=== PATIENT | male | born 1955 | race Caucasian/White ===

== ENCOUNTER 2016-11-20 08:04 | Inpatient (IN) | payer BC, OTHER ==
[2016-09-25 13:36] VITALS: BMI 29.0
[2016-09-25 13:54] VITALS: BMI 29.0
--- NOTE | 2016-09-25 14:14 | PAT Medication Instructions ---
Service Date Sep 25, 2016. Current Home Medication List Brggsotdzrd-Tosxmfsowpz-Qvr C- (Glucosamine Chondroitin), 1 TAB PO Q2D Krill Oil (Krill Oil), 1 CAP PO QAM Multivitamin (Multivitamin), 1 TAB PO QAM Medication Instructions For Your Scheduled Surgery - Hold the following medications 2 weeks prior to surgery: Oyczrzpgfkk-Ylatypdjrtc-Umj C- (Glucosamine Chondroitin), 1 TAB PO Q2D Krill Oil (Krill Oil), 1 CAP PO QAM - Hold the following medications the morning of surgery: Multivitamin (Multivitamin), 1 TAB PO QAM If you have any questions please call us at [phone] (Maryuri Lorenzana PA-C) or [phone] or [phone]
--- NOTE | 2016-09-25 14:48 | DIAGNOSTIC IMAGING REPORT ---
CHEST 2 VIEWS ROUTINE CLINICAL HISTORY: Preoperative evaluation COMPARISON STUDY: No previous studies for comparison. FINDINGS: Lung volumes are normal. Lungs are clear. There is no pneumothorax or pleural effusion. Cardiac size is normal. Mediastinal contours are normal. There is no evidence of pulmonary edema. IMPRESSION: No acute cardiopulmonary findings. Electronically signed by: Harmeet Martines M.D. 09/25/2016 2:47 PM
[2016-09-25 15:04] LABS: BASO % 0.2 %; BASO ABS # 0.02 K/uL (0-0.2); COMPLETE YES; EOS % 1.4 %; HEMATOCRIT 39.8 % (42-52); IG% 0.1 %; LYMPH % 26.7 %; LYMPH ABS # 2.43 K/uL (1.2-3.4); MEAN CELL VOLUME 89.6 fL (80-100); MEAN CORPUSCULAR HEMOGLOBIN 32.2 pg (25-34); MEAN CORPUSCULAR HGB CONC 35.9 g/dl (32-36); MEAN PLATELET VOLUME 10.8 fL (7.4-10.4); MONO % 8.6 %; PLATELET COUNT 169 K/uL (130-400); RED BLOOD COUNT 4.44 M/uL (4.7-6.1); WHITE BLOOD COUNT 9.11 K/uL (4.8-10.8)
[2016-09-25 15:08] LABS: URINE APPEARANCE CLEAR (CLEAR); URINE BILIRUBIN NEG (NEG); URINE COLOR YELLOW; URINE EPITHELIAL CELL AUTO 0-5 /lpf (0-5); URINE NITRITE NEG (NEG); URINE SPECIFIC GRAVITY 1.016 (1.000-1.030); UROBILINOGEN NEG (NEG); ZZUR CULT IF INDIC CLEAN CATCH NO
[2016-09-25 15:09] LABS: MANUAL MICROSCOPIC REQUIRED? NO; REVIEW REQ? NO
[2016-09-25 15:13] LABS: PROTHROMBIN TIME (PATIENT) 11.1 SECONDS (9.0-12.0)
[2016-09-25 15:21] LABS: BUN/CREATININE RATIO 9.9 (10-20)
[2016-09-25 15:32] LABS: CALCIUM 9.2 mg/dl (8.5-10.1)
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
[2016-11-20] VITALS (9 sets, daily range): BP systolic 113–163; BP diastolic 55–97; PULSE 57–79; TEMP 36.2–36.9; O2SAT 92–98; Ht 175.3 cm; Wt 88.0 kg
[~2016-11-20] VITALS: Ht 175.3 cm; Wt 88.0 kg
[~2016-11-20 08:04] MED LIST: ACETAMINOPHEN 500 MG TAB PO SCH; BUPIVACAINE 0.25% 30 ML VIAL ONE; BUPIVACAINE 0.5 % 5 MG/1 ML PF 10ML VIAL ONE; CEFAZOLIN 2000 MG/60 ML D5W 60 ML IV SCH; CLINDAMYCIN 600 MG/54 ML D5W IV SCH; CeleBREX 200 MG CAP PO SCH; DEXAMETHASONE 4 MG TAB PO SCH; FAMOTIDINE 20 MG TAB PO SCH; GABAPENTIN 300 MG CAP PO SCH; GLUCTAB7 PO; KRIL1CAP3 PO; LACTATED RINGER'S 1000ML 1,000 ML IV SCH; LACTATED RINGER'S 1000ML 500 ML IV ONE; LACTATED RINGER'S 1000ML IV SCH; METOCLOPRAMIDE HCL 10 MG TAB PO SCH; MULT-506 PO; OXYCODONE HCL 10 MG TABCR (OXYCONTIN) PO SCH; POLYMYXIN B SULFATE 100,000 UNITS in NSS 100ML IR SCH; ROPIVACAINE 5MG/ML 30 ML 150 MG, BUPIVACAINE/EPINEPHR 0.5% MPF 30 ML, KETOROLAC TROMETH... INFIL SCH; VANCOMYCIN INJ 400 MG in NSS 100ML IR SCH
--- NOTE | 2016-11-20 09:16 | History & Physical Bridge Note ---
H&P Re-Evaluation Bridge Note: I have examined the patient, reviewed the History & Physical and in the interval since the performance of the History & Physical I have noted the following changes of clinical significance: No changes noted
[2016-11-20] MEDS ORDERED: PROPOFOL IV EMULSION 10 MG/ML 20 ML VIAL IV ONE ×3 (09:37→13:30)
[2016-11-20] MEDS ORDERED: MIDAZOLAM HCL 1 MG/ML 2ML VIAL ONE ×3 (09:37→13:25)
[2016-11-20] MEDS: TRANEXAMIC ACID INJ 1,000 MG in SODIUM CHLORIDE 0.9% 100ML 100 ML IV SCH ×2 (11:07→16:15)
[2016-11-20] MEDS ORDERED: ORTHO JOINT ANESTHETIC ONE (11:11)
[2016-11-20] MEDS ORDERED: POVIDONE-IODINE OP SOLN 30 ML BTL ONE (11:12)
[2016-11-20] MEDS ORDERED: BUPIVACAINE/EPINEPHRINE 0.25% 1:200,000 30 ML VIAL ONE (11:13)
[2016-11-20] MEDS ORDERED: ONDANSETRON INJ 2 MG/ML 2 ML VIAL IV PRN ×2 (11:45→13:30)
[2016-11-20] MEDS ORDERED: ATROPINE SULFATE 0.1 MG/ML 5ML SYR IV PRN (11:45)
[2016-11-20] MEDS ORDERED: EpHEDrine SULFATE INJ 50 MG/ML AMP IV PRN (11:45)
[2016-11-20] MEDS ORDERED: PHENYLEPHRINE 100MCG/ML 5ML SYR IV PRN (11:45)
[2016-11-20] MEDS ORDERED: HYDROmorphone INJ 2 MG/ML SYR/VIAL IV PRN (11:45)
[2016-11-20] MEDS ORDERED: LABETALOL HCL IV 5 MG/ML 20ML ONE (12:24)
--- NOTE | 2016-11-20 13:27 | [facility] Post Operative Brief Note ---
Immediate Operative Summary Operative Date Nov 20, 2016. Pre-Operative Diagnosis Degenerative joint disease, right knee Post-Operative Diagnosis Degenerative joint disease, right knee Procedure(s) Performed Right Total Knee Arthroplasty Surgeon Dr. Shane Kennedy Director Of [employer] Surgeon(s) Hanna Freitas PA-C Estimated Blood Loss 75 Findings SEVERE SCARRING POST TRAUMATIC DJD Complication(s) None Disposition Recovery Room / PACU
[2016-11-20] MEDS ORDERED: ZOLPIDEM TARTRATE 5 MG TAB PO PRN (13:30)
[2016-11-20] MEDS ORDERED: DiphenhydrAMINE HCL 50 MG/ML VIAL IV PRN (13:30)
[2016-11-20] MEDS ORDERED: BISACODYL 10 MG SUPP PR PRN (13:30)
[2016-11-20] MEDS ORDERED: SOD PHOSPHATE/SOD BIPHOSPHATE ENEMA 132 ML BTL PR PRN (13:30)
[2016-11-20] MEDS ORDERED: METOCLOPRAMIDE HCL INJ 5 MG/ML 2 ML VIAL IV PRN (13:30)
[2016-11-20] MEDS ORDERED: TRAMADOL HCL 50 MG TAB PO PRN (13:30)
--- NOTE | 2016-11-20 14:30 | Anesthesiology Progress Note ---
Anesthesia Post Op Note Date & Time Nov 20, 2016 at 14:30 Vital Signs Pain Intensity: 0 Vital Signs Past 12 Hours Date Time Temp Pulse Resp B/P Pulse Ox O2 Delivery O2 Flow Rate FiO2 11/20/16 13:58 36.0 70 15 104/78 98 Mask 10 11/20/16 08:39 36.4 64 20 163/97 96 Room Air Notes Mental Status: alert / awake / arousable, participated in evaluation Pt Amnestic to Procedure: Yes Nausea / Vomiting: adequately controlled Pain: adequately controlled Airway Patency, RR, SpO2: stable & adequate BP & HR: stable & adequate Hydration State: stable & adequate Anesthetic Complications: no major complications apparent
--- NOTE | 2016-11-20 14:31 | DIAGNOSTIC IMAGING REPORT ---
RIGHT KNEE 1 OR 2 VIEWS ROUTINE CLINICAL HISTORY: Postoperative evaluation. COMPARISON: None FINDINGS: Alignment of the total right knee arthroplasty is anatomic. There is no fracture or unexpected radiopaque foreign body. Drains and skin brian are present. Cortical thickening within the mid shaft of the right femur is partially imaged on this exam and is chronic. There is extensive vascular calcification. IMPRESSION: Expected findings following total right knee arthroplasty. Electronically signed by: Harmeet Martines M.D. 11/20/2016 2:30 PM Dictated Date/Time: 11/20/2016 2:29 PM
[2016-11-20] MEDS: OXYCODONE HCL IR 5 MG TAB (IMMEDIATE RELEASE) PO PRN ×3 (15:36→23:53)
[2016-11-20] MEDS: MoRPHine SULFATE 2 MG/ML CARP IV PRN ×2 (16:54→22:46)
[2016-11-20] MEDS: D5W AND 1/2NSS + 20MEQ KCL 1,000 ML IV SCH (17:16)
[2016-11-20] MEDS ORDERED: TRANEXAMIC ACID INJ 1,000 MG in SODIUM CHLORIDE 0.9% 100ML 100 ML IV SCH (20:00)
[2016-11-20] MEDS: CEFAZOLIN IV 2,000 MG in DEXTROSE 5% 50ML 50 ML IV SCH (20:43)
[2016-11-20] MEDS: OXYCODONE HCL 10 MG TABCR (OXYCONTIN) PO SCH (20:44)
[2016-11-20] MEDS: ASPIRIN 81 MG ECTAB PO SCH (20:44)
[2016-11-20] MEDS: SENNA 8.6 MG TAB PO SCH (20:45)
[2016-11-20] MEDS: ACETAMINOPHEN 500 MG TAB PO SCH (21:23)
--- NOTE | 2016-11-21 00:24 | OPERATIVE REPORT ---
DATE OF OPERATION: 11/20/2016 PREOPERATIVE DIAGNOSIS: Severe posttraumatic arthritis, right knee. POSTOPERATIVE DIAGNOSIS: Same. PROCEDURE: Right total knee with patient matched implant. SURGEON: Yemi Kennedy MD OFFSET PRESS OPERATOR HELPER: JOSE Ruiz. ANESTHESIA: Spinal. BLOOD LOSS: 75 mL. TOURNIQUET TIME: 20 minutes at 275 mmHg. DRAINS: Hemovac x2. CULTURES: None. COMPLICATIONS: None. COMPONENTS USED: [employer] Knee System: Femur size 7, tibia size 7 x 10, patella size 38. NOTE: JOSE Ruiz was present and assisted throughout due to the complicated nature of this case. She helped with preparation and setup, first assisted throughout and personally closed the capsule, subcutaneous and skin layers and applied the postoperative dressing. DESCRIPTION: Following satisfactory spinal, the patient was supine. A tourniquet was placed on the lower extremity but not initially inflated. The lower extremity was prepared with ChloraPrep and draped sterilely. Following a surgical time-out, a midline incision was made with a median parapatellar arthrotomy. The approach was difficult. The patient had multiple previous surgeries from multiple scars and severe scarring of the capsule and subcutaneous tissues. This added additional time and agrees of difficulty to the surgery. Eventually a capsulotomy was performed showing severe degenerative changes throughout with absence of the anterior cruciate and again severe scarring of the medial side of the knee. Eventually the knee was exposed, the patient matched femoral block was applied, femoral distal rotation and resection were set and completed with some difficulty and the 4-in-1 block was used to finish preparation of the femur. The patient matched tibial block was applied. Tibial resection was completed. The patella was freehand cut again with some difficulty in exposure and a trial reduction showed good tensioning and stability on the collateral ligaments, the patella tracked well and the knee now showed full extension and flexion to at least 115 degrees. The trial components were removed. The capsule was prepared with the orthopedic cocktail and the tourniquet was inflated for better cement technique. After irrigation, the components were cemented with Simplex G cement. A Betadine soak was performed. When the cement had hardened, the Betadine was irrigated. Two drains were placed. The arthrotomy was closed with 0 V-Loc and #1 Vicryl interrupted. The subcutaneous tissues with 2-0 Vicryl and the skin with surgical brian. A surface wound VAC was applied. The patient was returned to his bed in stable condition. I attest to the content of the Intraoperative Record and any orders documented therein. Any exceptio ns are noted below.
[2016-11-21] MEDS: D5W AND 1/2NSS + 20MEQ KCL 1,000 ML IV SCH ×2 (03:20→11:45)
[2016-11-21 03:48] VITALS: BP 157/85; PULSE 74; TEMP 36.7; O2SAT 96
[2016-11-21] MEDS: OXYCODONE HCL IR 5 MG TAB (IMMEDIATE RELEASE) PO PRN ×4 (03:56→22:05)
[2016-11-21] MEDS: CEFAZOLIN IV 2,000 MG in DEXTROSE 5% 50ML 50 ML IV SCH (04:05)
[2016-11-21] MEDS: ACETAMINOPHEN 500 MG TAB PO SCH ×4 (05:42→22:05)
[2016-11-21 06:53] LABS: MEAN CELL VOLUME 88.6 fL (80-100); MEAN CORPUSCULAR HEMOGLOBIN 31.6 pg (25-34); MEAN CORPUSCULAR HGB CONC 35.6 g/dl (32-36); MEAN PLATELET VOLUME 10.3 fL (7.4-10.4); PLATELET COUNT 148 K/uL (130-400); RED BLOOD COUNT 3.61 M/uL (4.7-6.1); WHITE BLOOD COUNT 12.02 K/uL (4.8-10.8)
[2016-11-21 07:26] LABS: BUN/CREATININE RATIO 8.4 (10-20); CALCIUM 8.4 mg/dl (8.5-10.1); CREATININE 1.9 mg/dl (0.60-1.40); POTASSIUM 4.1 mmol/L (3.5-5.1)
[2016-11-21 07:29] VITALS: BP 159/88; PULSE 73; TEMP 36.6; O2SAT 95
[2016-11-21] MEDS: MAGNESIUM HYDROXIDE SUSP 30 ML UDC PO PRN ×2 (07:46→20:12)
--- NOTE | 2016-11-21 08:39 | Orthopedic Progress Note ---
Orthopedic Progress Note Date of Service Nov 21, 2016. Subjective Post OP Day: 1 Reports: feeling well, Denies: SOB, calf pain, chest pain, light headedness, nausea / vomiting Objective calves soft nontender, N/V intact, dressing C/D/I (PREVENA), A&O x3, toes mobile , hemovac drainage (125/75cc per shift) Date Time Temp Pulse Resp B/P Pulse Ox O2 Delivery O2 Flow Rate FiO2 11/21/16 07:29 36.6 73 18 159/88 95 Room Air 11/21/16 03:48 36.7 74 22 157/85 96 Room Air 11/20/16 23:56 96 Room Air 11/20/16 23:44 36.9 72 16 146/81 96 Room Air 11/20/16 20:14 36.6 79 16 142/87 93 Room Air 11/20/16 17:47 36.6 66 16 128/75 94 Nasal Cannula 2.0 11/20/16 16:49 36.2 66 14 128/86 92 Nasal Cannula 2.0 11/20/16 15:45 36.2 62 14 125/81 98 Nasal Cannula 1.5 11/20/16 15:30 Nasal Cannula 2.0 11/20/16 15:16 36.2 57 16 113/55 96 Nasal Cannula 1.5 11/20/16 14:45 36.4 69 12 117/72 95 Nasal Cannula 2.0 11/20/16 14:45 Nasal Cannula 11/20/16 14:30 37.0 11/20/16 14:23 62 16 11/20/16 14:23 64 16 104/72 97 11/20/16 14:18 67 16 117/67 97 11/20/16 14:18 63 16 11/20/16 14:13 71 15 128/80 98 11/20/16 14:13 62 16 11/20/16 14:08 69 18 11/20/16 14:08 73 18 107/74 98 11/20/16 14:03 65 14 11/20/16 14:03 64 14 109/69 98 11/20/16 13:59 148/79 11/20/16 13:58 80 16 98 11/20/16 13:58 76 16 11/20/16 13:58 36.0 70 15 104/78 98 Mask 10 11/20/16 08:39 36.4 64 20 163/97 96 Room Air Laboratory Results 24 Hours: Test 11/21/16 06:29 Hematocrit 32.0 % Hemoglobin 11.4 g/dL Assessment & Plan Assessment: POD#1 sp right TKA Inhouse Planning Pain Management: Celebrex, Oxycontin, PO Tylenol, Oxy IR DVT Prophylaxis: TEDs, SCDs, ASA Discharge Planning Discharge Planning: home with oppt ([facility] DC SATURDAY)
[2016-11-21] MEDS: OXYCODONE HCL 10 MG TABCR (OXYCONTIN) PO SCH ×2 (10:05→20:11)
[2016-11-21] MEDS: PANTOprazole SOD 40 MG TAB PO SCH (10:53)
[2016-11-21] MEDS: MULTIVITAMIN TAB PO SCH (10:53)
[2016-11-21] MEDS: ASPIRIN 81 MG ECTAB PO SCH ×2 (10:53→20:11)
[2016-11-21 11:48] VITALS: BP 149/81; PULSE 69; TEMP 36.7; O2SAT 92
[2016-11-21 15:21] VITALS: BP 146/90; PULSE 97; TEMP 36.5; O2SAT 94
[2016-11-21] MEDS: ALUMINUM/MAGNESIUM/SIMETH (MAALOX MAX) 30 ML UDC PO PRN (17:34)
[2016-11-21] MEDS: SENNA 8.6 MG TAB PO SCH (20:40)
[2016-11-21 23:12] VITALS: BP 116/71; PULSE 87; TEMP 36.9; O2SAT 95
[2016-11-22] MEDS: OXYCODONE HCL IR 5 MG TAB (IMMEDIATE RELEASE) PO PRN (00:07)
[2016-11-22] MEDS: ACETAMINOPHEN 500 MG TAB PO SCH (05:56)
[2016-11-22 06:39] VITALS: BP 132/84; PULSE 90; TEMP 36.5; O2SAT 96
[2016-11-22] MEDS: PANTOprazole SOD 40 MG TAB PO SCH (07:25)
[2016-11-22] MEDS: MULTIVITAMIN TAB PO SCH (07:26)
[2016-11-22] MEDS: OXYCODONE HCL 10 MG TABCR (OXYCONTIN) PO SCH (07:26)
[2016-11-22] MEDS: ALUMINUM/MAGNESIUM/SIMETH (MAALOX MAX) 30 ML UDC PO PRN (07:26)
--- NOTE | 2016-11-22 08:10 | Orthopedic Progress Note ---
Orthopedic Progress Note Date of Service Nov 22, 2016. Subjective Post OP Day: 2 Reports: feeling well, Denies: SOB, calf pain, chest pain, light headedness, nausea / vomiting Objective calves soft nontender, N/V intact, dressing C/D/I (PREVENA), A&O x3, toes mobile Date Time Temp Pulse Resp B/P Pulse Ox O2 Delivery O2 Flow Rate FiO2 11/22/16 06:39 36.5 90 18 132/84 96 Room Air 11/21/16 23:12 36.9 87 18 116/71 95 Room Air 11/21/16 20:00 Room Air 11/21/16 15:40 Room Air 11/21/16 15:21 36.5 97 18 146/90 94 Room Air 11/21/16 11:48 36.7 69 19 149/81 92 Room Air Assessment & Plan Assessment: POD#2 sp right TKA Inhouse Planning Pain Management: Celebrex, Oxycontin, PO Tylenol, Oxy IR DVT Prophylaxis: TEDs, SCDs, ASA Discharge Planning Discharge Planning: home with oppt ([facility] DC SATURDAY)
--- NOTE | 2016-11-22 08:11 | Discharge Instructions ---
Discharge Instructions Admission Reason for Admission: Right Knee Degenerative Arthritis Discharge Discharge Diagnosis / Problem: SP RIGHT TKA Discharge Goals Goal(s): Decrease discomfort, Improve function, Increase independence Activity Recommendations Activity Limitations: per Instructions/Follow-up section . Instructions / Follow-Up Instructions / Follow-Up ACTIVITY RECOMMENDATIONS: SELF CARE INSTRUCTIONS AFTER TOTAL KNEE REPLACEMENT A. You may need to continue a physical therapy program after discharge from the hospital. There are several options available to you. Your doctor will assist you in selecting the best one for you. 1. An out-patient facility 2 to 3 times a week for therapy or home therapy. 2. Continue working on all exercises taught to you in the hospital. Your goals should be to increase bending of your knee to 90 degrees and beyond and to fully straighten your knee. B. You may progress at your own pace from walking with a walker or crutches to a cane; then to no assistive devices. C. Make walking a part of your daily routine. Be up as much as comfortable with rest periods throughout the day. Rest with leg elevation is very important. Use the ice wrap frequently for the first 3-4 weeks. D. There are no restrictions on activities. You may ride in a car, shop, participate in artificial flowers supervisor and all social activities. E. Wear the long elastic stockings (HAKEEM hose) 20 hours a day for 2 weeks after surgery. They can be removed several times a day for laundering and for a bath. F. You may shower, no tub baths until cleared by your doctor. SPECIAL CARE INSTRUCTIONS: VERY IMPORTANT TO READ AND REVIEW A. There are a few signs you need to watch for after you are home. Call [facility] if you notice any of the followin. Increased severe knee pain. Some pain is expected especially when you exercise. 2. Increased swelling in your leg or knee; pain or swelling of the calf muscle in either lower leg. 3. Any fluid drainage from the incision. 4. Shortness of breath or chest pain. B. Please call [facility] at if you have any concerns or questions about your operation or recovery. The doctor or his nurse will return your call promptly. C. You must take antibiotics before dental work, bladder, bowel or other surgery. Your doctor will provide you with a permanent care to carry describing this precaution. IMPORTANT: * REMEMBER TO TAKE ASPIRIN, 81 MG, TWICE DAILY FOR 4 WEEKS UNLESS OTHERWISE DIRECTED. THIS IS YOUR BLOOD THINNER. * HIGH RISK PATIENTS MAY BE PRESCRIBED A STRONGER BLOOD THINNER. THIS WILL BE PROVIDED AT DISCHARGE. * CALL IF INCREASED PAIN, REDNESS, DRAINAGE OR FEVER GREATER THAT 101. * WEAR HAKEEM HOSE 20 HOURS PER DAY FOR 2 WEEKS. Prevena- This is a large suction dressing covering your incision. This will help pull any excess drainage from the wound and allow your incision to heal properly. You may shower with this if you can keep the unit outside of the shower. If any bleeding or leakage is noted please call your doctor's office. This will remain on your incision for 7 days and then should be removed. This can be done yourself or by the home nursing staff if applicable. The entire unit is disposable once removed. Once removed, keep incision clean and dry. If redness or drainage is noted, please call your surgeon. FOLLOW UP VISIT: If appointment is not already scheduled: Please call [facility] to make a follow-up appointment for 2 weeks after your surgery at . Current Hospital Diet Patient's current hospital diet: Regular Diet Discharge Diet Recommended Diet: Regular Diet Procedures Procedures Performed: Right Total Knee Arthroplasty Pending Studies Studies pending at discharge: no Medical Emergencies . Who to Call and When: Medical Emergencies: If at any time you feel your situation is an emergency, please call [phone] immediately. . Non-Emergent Contact Non-Emergency issues call your: Primary Care Provider . "Provider Documentation" section prepared by Katherine Freitas. VTE Core Measure Inpt VTE Proph given/why not?: Other Anticoagulation, T.E.D. Stockings, SCD's
[2016-11-22] MEDS ORDERED: ONDA8TAB6 PO (08:12)
[2016-11-22] MEDS ORDERED: SNK PO (08:12)
[2016-11-22] MEDS ORDERED: ASPEC81 PO (08:12)
[2016-11-22] MEDS ORDERED: MORP-157 PO (08:12)
[2016-11-22] MEDS ORDERED: RXC5 PO (08:12)
[2016-11-22] MEDS ORDERED: ACET-1138 PO (08:12)
[2016-11-22] MEDS: ASPIRIN 81 MG ECTAB PO SCH (09:10)
[2016-11-22 10:38] VITALS: BP 132/84; PULSE 90; TEMP 36.5; O2SAT 96
--- NOTE | 2016-12-03 14:22 | DISCHARGE SUMMARY ---
DISCHARGE DIAGNOSIS: Degenerative joint disease, right knee. SECONDARY DIAGNOSIS: Chronic kidney disease. CONSULTS: None. COMPLICATIONS: None. PROCEDURE: The patient underwent a right total knee arthroplasty with Dr. Kennedy on 11/20/2016. BRIEF HISTORY: Please see previously dictated history and physical. HOSPITAL SUMMARY: The patient was admitted on the above day for the above procedure. Procedure went without complication. Postop day 1, the patient was feeling well without complaints. He denied chest pain or shortness of breath. Vital signs were stable. He was afebrile. Prevena was clean, dry and intact. He was neurovascularly intact. Calves were soft and nontender. Hemovac drained 125 and 75 mL. Hemoglobin was 11.4. The patient began physical therapy per protocol. Postop day 2, the patient continued to improve. He denied chest pain or shortness of breath. Vital signs were stable. He was afebrile. Prevena was clean, dry and intact. He was neurovascularly intact. Calves were soft and nontender. The patient progressed with physical therapy and was discharged to home later that day in stable condition. For further review please see the chart. Lab, x-ray data and discharge instructions as per chart.
== END 2016-11-22 11:20 | disposition home or self-care (01) | DRG 470 ==
LOC: ENRESERVTM → ENRESERVDT → ENRESERV → C.ACU 08:04 → C.MSN 13:31 → C.MSW 22:34
PROVIDERS: ADMIT Orthopaedic Surgery; ATTEND Orthopaedic Surgery
PROC: 0SRC0J9 Replacement of Right Knee Joint with Synthetic Substitute, Cemented, Open Approach (ICD-10-PCS; principal; 2016-11-20 10:30)
DX: M17.11 Unilateral primary osteoarthritis, right knee (principal); N18.9 Chronic kidney disease, unspecified